=== PATIENT | female | born 1955 | race Caucasian/White ===

== ENCOUNTER 2020-05-30 14:00 | Emergency (ER) | payer MEDICARE, OTHER, MEDICAID ==
[~2020-05-30] VITALS: Ht 167.6 cm; Wt 67.0 kg
[2020-05-30 19:10] VITALS: BP 122/76
== END 2020-05-30 19:10 | disposition left against medical advice (07) ==
LOC: ER 14:00
DX: E05.00 Thyrotoxicosis with diffuse goiter without thyrotoxic crisis or storm (principal); F41.9 Anxiety disorder, unspecified; F32.9 Major depressive disorder, single episode, unspecified; Z88.0 Allergy status to penicillin
CPT/HCPCS: 87070; 87430; 93005; 99285; C9803; U0003